=== PATIENT | female | born 1955 | race Caucasian/White ===

== ENCOUNTER 2022-07-01 12:57 | Emergency (ER) | payer OTHER, MEDICAID ==
[~2022-07-01] VITALS: Ht 154.9 cm; Wt 61.2 kg
[2022-07-01 13:10] VITALS: BP_SYST 145
[2022-07-01] MEDS ORDERED: ACETAMINOPHEN 325 MG TABLET PO ONE (14:00)
[2022-07-01 14:30] LABS: BASOPHILS # (AUTO) 0.1 K/uL (0.0-0.2); BASOPHILS % (AUTO) 0.7 % (0.0-2.0); EOSINOPHILS % (AUTO) 0.4 % (0.0-4.0); HEMATOCRIT 35.9 % (36-48); HEMOGLOBIN 12.1 g/dL (12.0-16.0); LYMPHOCYTES # (AUTO) 3.1 K/uL (1.0-5.5); LYMPHOCYTES % (AUTO) 25.8 % (20.5-51.5); MEAN CORPUSCULAR HEMOGLOBIN 31 pg (27-31); MEAN CORPUSCULAR HGB CONC 34 % (32-36); MEAN CORPUSCULAR VOLUME 92 fL (79.0-98.0); MONOCYTES # (AUTO) 0.7 K/uL (0.0-1.0); MONOCYTES % (AUTO) 6.1 % (1.7-9.3); NEUTROPHILS # (AUTO) 8.1 K/uL (1.8-7.7); PLATELET COUNT (AUTO) 336 K/uL (130-430); RED BLOOD CELL COUNT(AUTO) 3.92 MIL/uL (4.2-6.2); RED CELL DISTRIBUTION WIDTH 13.4 % (9.0-15.0); WHITE BLOOD COUNT (AUTO) 12.1 K/uL (4.8-10.8)
[2022-07-01 14:36] LABS: BILIRUBIN,URINE NEGATIVE (NEGATIVE); BLOOD, URINE NEGATIVE (NEGATIVE); CLARITY/URINE CLEAR (CLEAR); COLOR,URINE YELLOW (YELLOW); GLUCOSE,URINE 3+ (NEGATIVE); KETONES,URINE 1+ (NEGATIVE); LEUKOCYTE ESTERASE ,URINE NEGATIVE (NEGATIVE); NITRITE, URINE NEGATIVE (NEGATIVE); PROTEIN URINE NEGATIVE (NEGATIVE); UROBILINOGEN,URINE 0.2 (0.2-1.0)
[2022-07-01 14:43] LABS: CALCIUM 9.5 mg/dL (8.4-11.0); CREATININE 0.65 mg/dL (0.55-1.30)
[2022-07-01 15:01] LABS: TOTAL BILIRUBIN 0.6 mg/dL (0.0-1.0)
[2022-07-01 15:17] LABS: INR 0.9 (0.8-1.2); PROTHROMBIN TIME 9.5 SECS (9.5-12.5)
[2022-07-01 15:59] LABS: RBC,URINE 0-3 /HPF (0-3); WBC,URINE 0-3 /HPF (0-3)
[2022-07-01 16:00] LABS: BACTERIA,URINE RARE /HPF (None Seen)
[2022-07-01] MEDS ORDERED: fentaNYL CITRATE/PF 100 MCG/2 ML AMP IVP ONE (16:00)
[2022-07-01] MEDS ORDERED: ONDANSETRON HCL 4 MG/2 ML VIAL IVP ONE (16:00)
[2022-07-01] MEDS ORDERED: HYDROcodone/ACETAMIN 5-325 MG TAB (NORCO/ VICODIN) PO ONE (20:30)
[2022-07-01 21:04] VITALS: BP_SYST 142
== END 2022-07-01 21:05 | disposition short-term general hospital (02) ==
LOC: SED 12:57
DX: S06.5X0A Traumatic subdural hemorrhage without loss of consciousness, initial encounter (principal); R11.0 Nausea; M79.10 Myalgia, unspecified site; E11.9 Type 2 diabetes mellitus without complications; Z88.0 Allergy status to penicillin; Z88.6 Allergy status to analgesic agent; Z79.899 Other long term (current) drug therapy; Z20.822 Contact with and (suspected) exposure to COVID-19; W19.XXXA Unspecified fall, initial encounter; Y93.89 Activity, other specified; Y92.89 Other specified places as the place of occurrence of the external cause; Y99.8 Other external cause status
CPT/HCPCS: 99291; 70450; 96374; 96375; 87426; 80053; 81000; 82962; 85025; 85610; 85730; 84484; 36415; 71045; 72125; 76376; J2405; J3010